=== PATIENT | female | born 2000 | race Two or more races ===

== ENCOUNTER 2020-05-21 00:40 | Emergency (ER) | payer MEDICAID ==
[~2020-05-21] VITALS: Ht 165.1 cm; Wt 63.6 kg
[2020-05-21] MEDS ORDERED: SODIUM CHLORIDE 0.9% 1,000 ML IV ONE (01:45)
[2020-05-21] MEDS ORDERED: ONDANSETRON HCL 4 MG TABLET PO ONE (01:45)
[2020-05-21] MEDS ORDERED: ACETAMINOPHEN 325 MG TABLET PO ONE (01:45)
[2020-05-21 02:15] LABS: COVID AG,FIA SOURCE NASOPHARYNGEAL
[2020-05-21 02:30] VITALS: BP 131/79
[2020-05-21] MEDS ORDERED: KETOROLAC TROMETHAMINE 30 MG/ML VIAL IVP ONE (02:45)
== END 2020-05-21 03:20 | disposition home or self-care (01) ==
LOC: EMS 00:40
DX: U07.1 COVID-19 (principal)
CPT/HCPCS: 81025; 87426; 96361; 96374; 99284; J1885; J7030; Q0162

== ENCOUNTER 2020-09-14 09:08 | Emergency (ER) | payer MEDICAID, OTHER ==
[~2020-09-14] VITALS: Ht 165.1 cm; Wt 65.0 kg
[2020-09-14] MEDS ORDERED: SODIUM CHLORIDE 0.9% 1,000 ML IV ONE (10:45)
[2020-09-14] MEDS ORDERED: ONDANSETRON HCL 4 MG/2 ML VIAL IVP ONE (10:45)
[2020-09-14 11:36] LABS: BASOPHILS % (AUTO) 0.5 % (0.0-2.0); EOSINOPHILS % (AUTO) 1.6 % (1.0-6.0); HEMATOCRIT 40.5 % (36-46); HEMOGLOBIN 13.6 g/dL (12.0-16.0); LYMPHOCYTES # (AUTO) 1.8 K/uL (1.0-4.8); LYMPHOCYTES % (AUTO) 17.4 % (22.0-44.0); MEAN CORPUSCULAR HEMOGLOBIN 29.1 pg (26.0-34.0); MEAN CORPUSCULAR HGB CONC 33.6 G/dL (31.0-37.0); MEAN CORPUSCULAR VOLUME 87 fL (80-100); MONOCYTES # (AUTO) 0.6 K/uL (0.1-1.0); MONOCYTES % (AUTO) 6.2 % (2.0-9.0); NEUTROPHILS # (AUTO) 7.8 K/uL (1.8-7.7); NEUTROPHILS % (AUTO) 74.3 % (40.0-70.0); PLATELET COUNT (AUTO) 269 K/uL (150-450); RED BLOOD CELL COUNT(AUTO) 4.67 MIL/uL (4.00-5.20); RED CELL DISTRIBUTION WIDTH 13.9 % (11.5-14.5)
[2020-09-14 11:55] LABS: ANION GAP 5 mmol/L (8-16); CALCIUM, TOTAL 9.2 mg/dL (8.8-10.5); CARBON DIOXIDE 27 mmol/L (22-29); CHLORIDE 103 mmol/L (98-107); CREATININE 0.64 mg/dL (0.60-1.30); GLOMERULAR FILTR. RATE CALC > 60 mL/min (>60); GLUCOSE,RANDOM 84 mg/dL (70-110); POTASSIUM 4.3 mmol/L (3.5-5.1); SODIUM SERUM 135 mmol/L (136-145); UREA NITROGEN, BLOOD 10 mg/dL (7-18)
[2020-09-14 12:10] LABS: ALANINE AMINOTRANSFERASE 39 U/L (12-78); ALBUMIN 4.1 g/dL (3.4-5.0); ALKALINE PHOSPHATASE 72 U/L (46-116); ASPARTATE AMINOTRANSFERASE 20 U/L (15-37); BILIRUBIN,TOTAL 0.2 mg/dL (0.1-1.0); HCG,QUANTITATIVE < 1 mIU/mL (0-6); LIPASE 126 U/L (73-393); TOTAL PROTEIN, SERUM 7.9 g/dL (6.4-8.2)
[2020-09-14] MEDS ORDERED: ACETAMINOPHEN 500 MG TABLET PO ONE (12:45)
[2020-09-14 13:36] VITALS: BP 121/76
== END 2020-09-14 13:40 | disposition home or self-care (01) ==
LOC: EMS 09:08
DX: R10.11 Right upper quadrant pain (principal); R51.9 Headache, unspecified; R42 Dizziness and giddiness
CPT/HCPCS: 36415; 80053; 83690; 84702; 85025; 96361; 96374; 99283; J2405; J7030

== ENCOUNTER 2022-01-09 17:10 | Emergency (ER) | payer OTHER ==
[~2022-01-09] VITALS: Ht 165.1 cm; Wt 68.2 kg
[2022-01-09] MEDS: BACLOFEN 10 MG TABLET PO ONE (19:17)
[2022-01-09] MEDS: KETOROLAC TROMETHAMINE 60 MG/2 ML VIAL IM ONE (19:18)
[2022-01-09] MEDS ORDERED: ACET-2080 PO (20:36)
[2022-01-09] MEDS ORDERED: IBUP-1554 PO (20:36)
[2022-01-09] MEDS ORDERED: BACL10TA PO (20:36)
[2022-01-09 21:03] VITALS: BP 129/79
== END 2022-01-09 21:05 | disposition home or self-care (01) ==
LOC: EMS 17:12
DX: S16.1XXA Strain of muscle, fascia and tendon at neck level, initial encounter (principal); S29.012A Strain of muscle and tendon of back wall of thorax, initial encounter; R07.89 Other chest pain; Z79.899 Other long term (current) drug therapy; V49.49XA Driver injured in collision with other motor vehicles in traffic accident, initial encounter; Y93.89 Activity, other specified; Y92.89 Other specified places as the place of occurrence of the external cause; Y99.8 Other external cause status
CPT/HCPCS: 71045; 72040; 96372; 99284; J1885

== ENCOUNTER 2022-01-18 07:48 | Emergency (ER) | payer OTHER ==
[~2022-01-18] VITALS: Ht 165.1 cm; Wt 68.2 kg
[~2022-01-18 07:48] MED LIST: ACET-2080 PO; BACL10TA PO; IBUP-1554 PO
[2022-01-18] MEDS ORDERED: IBUPROFEN 600 MG TABLET PO ONE (08:30)
[2022-01-18] MEDS ORDERED: ACETAMINOPHEN 500 MG TABLET PO ONE (08:30)
[2022-01-18] MEDS ORDERED: ONDANSETRON HCL 4 MG TABLET PO ONE (08:30)
[2022-01-18 08:44] VITALS: BP 135/69
[2022-01-18 08:46] LABS: COVID AG,FIA SOURCE NASOPHARYNGEAL
[2022-01-18 09:25] LABS: INFLUENZA TYPE A NEGATIVE FOR TYPE A (NEGATIVE); INFLUENZA TYPE B NEGATIVE FOR TYPE B (NEGATIVE)
[2022-01-18 09:28] LABS: RAPID GROUP A STREP NEGATIVE (NEGATIVE)
[2022-01-18] MEDS ORDERED: ONDA-104 PO (16:54)
== END 2022-01-18 10:06 | disposition home or self-care (01) ==
LOC: EMS 07:48
DX: U07.1 COVID-19 (principal)
CPT/HCPCS: 87426; 87430; 87804; 99284; Q0162

== ENCOUNTER 2022-05-03 14:43 | Emergency (ER) | payer OTHER ==
[~2022-05-03] VITALS: Ht 165.1 cm; Wt 72.7 kg
[~2022-05-03 14:43] MED LIST changes: +ONDA-104 PO
[2022-05-03 15:27] LABS: BASOPHILS % (AUTO) 0.7 % (0.0-2.0); EOSINOPHILS % (AUTO) 2.4 % (1.0-6.0); HEMATOCRIT 39.5 % (36-46); HEMOGLOBIN 12.9 g/dL (12.0-16.0); LYMPHOCYTES # (AUTO) 2.8 K/uL (1.0-4.8); LYMPHOCYTES % (AUTO) 25.6 % (22.0-44.0); MEAN CORPUSCULAR HEMOGLOBIN 27.8 pg (26.0-34.0); MEAN CORPUSCULAR HGB CONC 32.8 G/dL (31.0-37.0); MEAN CORPUSCULAR VOLUME 85 fL (80-100); MONOCYTES # (AUTO) 0.6 K/uL (0.1-1.0); MONOCYTES % (AUTO) 5.7 % (2.0-9.0); NEUTROPHILS # (AUTO) 7.1 K/uL (1.8-7.7); NEUTROPHILS % (AUTO) 65.6 % (40.0-70.0); PLATELET COUNT (AUTO) 317 K/uL (150-450); RED BLOOD CELL COUNT(AUTO) 4.66 MIL/uL (4.00-5.20); RED CELL DISTRIBUTION WIDTH 14.4 % (11.5-14.5)
[2022-05-03 15:36] LABS: ANION GAP 8 mmol/L (8-16); CALCIUM, TOTAL 9.4 mg/dL (8.8-10.5); CARBON DIOXIDE 27 mmol/L (22-29); CHLORIDE 101 mmol/L (98-107); CREATININE 0.93 mg/dL (0.60-1.30); GLUCOSE,RANDOM 120 mg/dL (70-110); POTASSIUM 3.4 mmol/L (3.5-5.1); SODIUM SERUM 136 mmol/L (136-145); UREA NITROGEN, BLOOD 9 mg/dL (7-18)
[2022-05-03 15:37] LABS: GLOMERULAR FILTR. RATE CALC > 60 mL/min (>60)
[2022-05-03 15:42] LABS: ALANINE AMINOTRANSFERASE 16 U/L (12-78); ALBUMIN 4.4 g/dL (3.4-5.0); ALKALINE PHOSPHATASE 81 U/L (46-116); ASPARTATE AMINOTRANSFERASE 14 U/L (15-37); BILIRUBIN,TOTAL 0.2 mg/dL (0.1-1.0); TOTAL PROTEIN, SERUM 8.2 g/dL (6.4-8.2)
[2022-05-03 17:36] VITALS: BP 140/99
== END 2022-05-03 17:40 | disposition home or self-care (01) ==
LOC: EMS 14:43
DX: N92.0 Excessive and frequent menstruation with regular cycle (principal)
CPT/HCPCS: 76856; 80053; 84703; 85025; 99284